=== PATIENT | female | born 1940 | race Caucasian/White ===

== ENCOUNTER 2023-11-21 09:12 | Day surgery (SDC) | payer MEDICARE, SELFPAY ==
[2023-11-16 09:00] VITALS: BMI 24.3
--- NOTE | 2023-11-17 14:27 | HO.ANESPROP2 ---
HPI - Anesthesia Eval Consult details Narrative: 83yo F for Right Cataract Extraction IOL Insertion No previous cataract PMFSH Past Medical History Medical History Hx of systemic lupus erythematosus (SLE) Hyperlipidemia HTN (hypertension) Osteopenia Asthma Breast cancer CKD (chronic kidney disease) Surgical History Surgical History Hx of partial mastectomy Hx of bilateral mastectomy H/O colonoscopy History of lumpectomy of right breast Social History Social History Patient Tobacco Use Status: Never used Tobacco Use of substances other than those prescribed or required for medical reasons: No Are you DNR?: No Advance Directives: No Advance Directives Information Provided: No Advance Directives on File: No Patient : No : No Meds Allergies Allergy/AdvReac Type Severity Reaction Status Date / Time dog dander [dogs] Allergy Wheezing Verified 11/21/23 11:22 Home Medications ?Medication ?Instructions ?Recorded ?Confirmed ?Last Taken ?Type lisinopril 20 1 tab PO DAILY 11/16/23 11/16/23 Unknown History mg-hydrochlorothiazide 12.5 mg tablet lovastatin 20 mg tablet 20 mg PO DAILY 11/16/23 11/16/23 Unknown History multivitamin 1 tab PO DAILY 11/16/23 11/16/23 Unknown History Exam Height,Weight and Vital Signs: Height 5 ft 3 in Weight 62.142 kg Assessment and Plan Assessment Anesthesia Assessment: Chart Reviewed
[2023-11-21] MEDS: Lactated Ringers 500 ML 50 ML IV (10:57)
[2023-11-21] MEDS: Tetracaine HCl/PF 0.5% Oph Sol 4 ML DROPS 1 DROP EYE-RIGHT (10:57)
[2023-11-21] MEDS: Cyclopentolate 1 % Ophth Sol 2 ML DRPBTL 1 DROP EYE-RIGHT ×3 (10:58→11:12)
[2023-11-21] MEDS: Ketorolac Tromethamine 0.5% Op 10 ML DROPS 1 DROP EYE-RIGHT ×3 (10:58→11:12)
[2023-11-21] MEDS: Tropicamide 1 % Ophth Sol 3 ML BTL 1 DROP EYE-RIGHT ×3 (10:58→11:12)
[2023-11-21] MEDS: Phenylephrine HCL 2.5% Oph SoL 2 ML BOTTLE 1 DROP EYE-RIGHT ×3 (10:58→11:11)
[2023-11-21 11:21] VITALS: BP 143/93; PULSE 87; RESP 18; TEMP 37.2; O2SAT 99
--- NOTE | 2023-11-21 11:58 | HO.ANESPROP2 ---
[facility] Past Medical History Medical History Hx of systemic lupus erythematosus (SLE) Hyperlipidemia HTN (hypertension) Osteopenia Asthma Breast cancer CKD (chronic kidney disease) Functional capacity: independent ambulation Patient : No Family History Family history of problems with anesthesia: No Surgical History Surgical History Hx of partial mastectomy Hx of bilateral mastectomy H/O colonoscopy History of lumpectomy of right breast History of Problems with Anesthesia: No Social History Social History Patient Tobacco Use Status: Never used Tobacco Use of substances other than those prescribed or required for medical reasons: No Are you DNR?: No Advance Directives: No Advance Directives Information Provided: Yes Advance Directives on File: No Patient : No : No Meds Allergies Allergy/AdvReac Type Severity Reaction Status Date / Time dog dander [dogs] Allergy Wheezing Verified 11/21/23 11:22 Active Medications: Current Medications Albuterol Sulfate (Albuterol Sulfate (0.083%) 2.5 Mg/3 Ml Vial.Neb) 2.5 mg INHALE ONCE PRN PRN Reason: Shortness of Breath/Wheezing Lactated Ringer's (Lr) 500 mls @ 50 mls/hr IV .Q10H AVERY Stop: 11/21/23 20:44 Last Admin: 11/21/23 10:57 Dose: 50 mls/hr Povidone Iodine (Povidone Iodine 5 % Oph Soln 30 Ml Bottle) 1 appl EYE-RIGHT PREOP PRN PRN Reason: Pre-Op Surgical Implant Prophy Home Medications ?Medication ?Instructions ?Recorded ?Confirmed ?Last Taken ?Type lisinopril 20 1 tab PO DAILY 11/16/23 11/16/23 Unknown History mg-hydrochlorothiazide 12.5 mg tablet lovastatin 20 mg tablet 20 mg PO DAILY 11/16/23 11/16/23 Unknown History multivitamin 1 tab PO DAILY 11/16/23 11/16/23 Unknown History Exam Height,Weight and Vital Signs: Height 5 ft 3 in Weight 62.142 kg Last Vital Signs Temp 98.9 F 11/21/23 11:21 Pulse 87 11/21/23 11:21 Resp 18 11/21/23 11:21 BP 143/93 H 11/21/23 11:21 Pulse Ox 99 11/21/23 11:21 O2 Del Method Room Air 11/21/23 11:21 Airway Mallampati Class: II TM Dist: >3cm Neck ROM: Full Heart: RRR Lungs: CTA Assessment and Plan Assessment Anesthesia Assessment: Anesthesia Plan Discussed and Chart Reviewed Final Anesthetic Review Family History of Problems with Anesthesia: No History of Problems with Anesthesia: No NPO: Yes ASA Class: II Final Preanesthetic Review: Meds/Allgs Chart Reviewed, Consent Obtained/Reviewed and Anes Risks/Benef Reviewed Patient Risk: Intermediate Procedure Risk: Low Anesthetic Plan Anesthetic Plan: MAC: Disposition: Standard PACU
--- NOTE | 2023-11-21 12:45 | MHC.SHP ---
Pre-Procedural Eval Section A - 24 Hr Update-Section A only Date of Service: 11/21/23 The patient is an INPATIENT: No Changes since office visit: No Cold of Flu in the past 2 weeks, No New Medical Problems, No Changes in Medication and No Patient answered all questions The patient has been examined within 24 hours of the surgical procedure. The History & Physical has been completed within 30 days and I have reviewed it.: Yes Section B - Complete if H&P > 30 days Chief Complaint: Age-related nuclear cataract, right eye Allergies: Allergies Allergy/AdvReac Type Severity Reaction Status Date / Time dog dander [dogs] Allergy Wheezing Verified 11/21/23 11:22 Plan Diagnosis/Plan: Unchanged I have reviewed the history and physical and performed a pertinent physical examination on my patient. No changes have occurred unless specified. Time Spent With Patient Time: Total time managing care of this patient today ____ minutes.
--- NOTE | 2023-11-21 12:46 | P.PCNO_ITS ---
Ophthalmology Procedure Procedure Date of Service: 11/21/23 Ophthalmology Viscoelastic: Healon Duet Dual Pack Pro Ophthalmology Lenses: IOL Acrysof MP - MA60AC (22) Procedure Notes: PREOPERATIVE DIAGNOSIS: Decreased visual acuity right eye secondary to cataract POSTOPERATIVE DIAGNOSIS: Same PROCEDURE: Right cataract extraction with intraocular lens insertion SURGEON: Brooks Frey M.D. ANESTHESIA: Topical/MAC ESTIMATED BLOOD LOSS: None COMPLICATIONS: None After obtaining informed consent, the patient was brought to the operating room suite and placed in the supine position. After adequate sedation per anesthesia, topical drops of Tetracaine were given to the right eye. The eye was then prepped and draped in the usual sterile fashion. The operating room microscope was then positioned over the operative eye and a lid speculum placed. A paracentesis was created. Viscoelastic was then instilled into the anterior chamber. A three plane incision was then created temporally, utilizing a 2.85 mm keratome. Capsulotomy forceps were then utilized to create a circular tear capsulotomy. Hydrodissection and hydrodelineation were carried out until adequate mobilization of the nucleus occurred. Phacoemulsification was then utilized to remove the dense central nucl eus followed by removal of the cortical material utilizing the automated aspiration irrigation unit. Viscoelastic was instilled into the posterior capsular bag followed by placement of a posterior chamber intraocular lens without difficulty. The residual Viscoelastic was then removed utilizing the automated IA machine. The wound was checked and found to be watertight. The patient tolerated the procedure well and the lid speculum was removed. Intracameral injection of Vigamox 0.1 mL followed by a subtenon injection of Kenalog-40 0.2 mL were administered. The patient will be seen in the a.m.
[2023-11-21 13:16] VITALS: BP 154/70; PULSE 77; RESP 15; TEMP 36.1; O2SAT 98
--- NOTE | 2023-11-21 13:18 | HO.ANESPROP2 ---
[facility] Past Medical History Medical History Hx of systemic lupus erythematosus (SLE) Hyperlipidemia HTN (hypertension) Osteopenia Asthma Breast cancer CKD (chronic kidney disease) Functional capacity: independent ambulation Patient : No Family History Family history of problems with anesthesia: No Surgical History Surgical History Hx of partial mastectomy Hx of bilateral mastectomy H/O colonoscopy History of lumpectomy of right breast History of Problems with Anesthesia: No Social History Social History Patient Tobacco Use Status: Never used Tobacco Use of substances other than those prescribed or required for medical reasons: No Are you DNR?: No Advance Directives: No Advance Directives Information Provided: Yes Advance Directives on File: No Patient : No : No Meds Allergies Allergy/AdvReac Type Severity Reaction Status Date / Time dog dander [dogs] Allergy Wheezing Verified 11/21/23 11:22 Active Medications: Current Medications Albuterol Sulfate (Albuterol Sulfate (0.083%) 2.5 Mg/3 Ml Vial.Neb) 2.5 mg INHALE ONCE PRN PRN Reason: Shortness of Breath/Wheezing Lactated Ringer's (Lr) 500 mls @ 50 mls/hr IV .Q10H AVERY Stop: 11/21/23 20:44 Last Admin: 11/21/23 10:57 Dose: 50 mls/hr Naloxone HCl (Naloxone Hcl 0.4 Mg/Ml Vial) 0.04 mg IVPUSH Q5M PRN PRN Reason: Excessive sedation or RR < 8 Povidone Iodine (Povidone Iodine 5 % Ophth Soln 30 Ml Bottle) 1 appl EYE-RIGHT PREOP PRN PRN Reason: Pre-Op Surgical Implant Prophy Home Medications ?Medication ?Instructions ?Recorded ?Confirmed ?Last Taken ?Type lisinopril 20 1 tab PO DAILY 11/16/23 11/16/23 Unknown History mg-hydrochlorothiazide 12.5 mg tablet lovastatin 20 mg tablet 20 mg PO DAILY 11/16/23 11/16/23 Unknown History multivitamin 1 tab PO DAILY 11/16/23 11/16/23 Unknown History Exam Height,Weight and Vital Signs: Height 5 ft 3 in Weight 62.142 kg Last Vital Signs Temp 98.9 F 11/21/23 11:21 Pulse 87 11/21/23 11:21 Resp 18 11/21/23 11:21 BP 143/93 H 11/21/23 11:21 Pulse Ox 99 11/21/23 11:21 O2 Del Method Room Air 11/21/23 11:21 Airway Mallampati Class: III TM Dist: >3cm Neck ROM: Full Heart: RRR Lungs: CTA Assessment and Plan Assessment Anesthesia Assessment: Anesthesia Plan Discussed and Chart Reviewed Final Anesthetic Review Family History of Problems with Anesthesia: No History of Problems with Anesthesia: No NPO: Yes ASA Class: III Final Preanesthetic Review: Meds/Allgs Chart Reviewed, Consent Obtained/Reviewed and Anes Risks/Benef Reviewed Patient Risk: Intermediate Procedure Risk: Low Anesthetic Plan Anesthetic Plan: MAC: Disposition: Standard PACU
[2023-11-21 13:31] VITALS: BP 137/77; PULSE 79; RESP 16; TEMP 36.1; O2SAT 98
--- NOTE | 2023-11-21 14:10 | HO.POSTANES ---
Post Anesthesia Evaluation Post Anesthesia Evaluation Date of Service: 11/21/23 Vital Signs: Vital Signs Temp Pulse Resp BP Pulse Ox O2 Del Method 11/21/23 13:31 97 F 79 16 137/77 98 Room Air 11/21/23 13:16 97 F 77 15 154/70 H 98 Room Air 11/21/23 11:21 98.9 F 87 18 143/93 H 99 Room Air Anesthesia: Monitored Mental Status: Awake Pain Control: Satisfactory Nausea/Vomiting: None Hydration: Adequate Anesthesia-Related Issues: No Anes. Related Issues
== END 2023-11-21 13:34 | disposition home or self-care (01) ==
PROVIDERS: PCP Internal Medicine; Visit Provider Ophthalmology
PROC: (CPT 66985; principal; 2023-11-21 11:10)
DX: H25.11 Age-related nuclear cataract, right eye (principal); H52.4 Presbyopia; H35.363 Drusen (degenerative) of macula, bilateral; H18.413 Arcus senilis, bilateral; I12.9 Hypertensive chronic kidney disease with stage 1 through stage 4 chronic kidney disease, or unspecified chronic kidney disease; N18.30 Chronic kidney disease, stage 3 unspecified; M32.9 Systemic lupus erythematosus, unspecified; J45.909 Unspecified asthma, uncomplicated; Z85.3 Personal history of malignant neoplasm of breast; M85.80 Other specified disorders of bone density and structure, unspecified site; E78.5 Hyperlipidemia, unspecified; Z98.890 Other specified postprocedural states; Z79.899 Other long term (current) drug therapy
CPT/HCPCS: 66984; J2250; J3301; V2630

== ENCOUNTER 2023-12-05 08:56 | Day surgery (SDC) | payer MEDICARE, SELFPAY ==
[2023-11-16 09:06] VITALS: BMI 24.3
[2023-12-05] MEDS: Tetracaine HCl/PF 0.5% Oph Sol 4 ML DROPS 1 DROP EYE-LEFT (10:16)
[2023-12-05] MEDS: Lactated Ringers 500 ML 50 ML IV (10:16)
[2023-12-05] MEDS: Cyclopentolate 1 % Ophth Sol 2 ML DRPBTL 1 DROP EYE-LEFT ×3 (10:16→10:30)
[2023-12-05] MEDS: Tropicamide 1 % Ophth Sol 3 ML BTL 1 DROP EYE-LEFT ×3 (10:17→10:30)
[2023-12-05] MEDS: Phenylephrine HCL 2.5% Oph SoL 2 ML BOTTLE 1 DROP EYE-LEFT ×3 (10:17→10:31)
[2023-12-05] MEDS: Ketorolac Tromethamine 0.5% Op 10 ML DROPS 1 DROP EYE-LEFT ×3 (10:17→10:30)
--- NOTE | 2023-12-05 10:35 | P.CONAN_ITS ---
Documented by User: Aranza Orr NP 12/01/23 14:40 HPI - Anesthesia Eval Consult details Narrative: 83yo F for Left Cataract Extraction IOL Insertion Right eye 11/21/23: [facility] 2 [facility] Past Medical History Medical History Hx of systemic lupus erythematosus (SLE) Hyperlipidemia HTN (hypertension) Osteopenia Asthma Breast cancer CKD (chronic kidney disease) Family History Family history of problems with anesthesia: No Surgical History Surgical History Hx of partial mastectomy Hx of bilateral mastectomy H/O colonoscopy History of lumpectomy of right breast History of Problems with Anesthesia: No Social History Social History Patient Tobacco Use Status: Never used Tobacco Use of substances other than those prescribed or required for medical reasons: No Are you DNR?: No Advance Directives: No Advance Directives Information Provided: Yes Advance Directives on File: No Patient : No : No Meds Allergies Allergy/AdvReac Type Severity Reaction Status Date / Time dog dander [dogs] Allergy Wheezing Verified 11/21/23 11:22 Home Medications ?Medication ?Instructions ?Recorded ?Confirmed ?Last Taken ?Type lisinopril 20 1 tab PO DAILY 11/16/23 11/16/23 Unknown History mg-hydrochlorothiazide 12.5 mg tablet lovastatin 20 mg tablet 20 mg PO DAILY 11/16/23 11/16/23 Unknown History multivitamin 1 tab PO DAILY 11/16/23 11/16/23 Unknown History Exam Height,Weight and Vital Signs: Height 5 ft 3 in Weight 62.142 kg Assessment and Plan Assessment Anesthesia Assessment: Chart Reviewed Final Anesthetic Review Family History of Problems with Anesthesia: No History of Problems with Anesthesia: No Documented by User: Amaris Paniagua DO 12/05/23 10:39 PMFSH Past Medical History Medical History Hx of systemic lupus erythematosus (SLE) Hyperlipidemia HTN (hypertension) Osteopenia Asthma Breast cancer CKD (chronic kidney disease) Family History Family history of problems with anesthesia: No Surgical History Surgical History Hx of partial mastectomy Hx of bilateral mastectomy H/O colonoscopy History of lumpectomy of right breast History of Problems with Anesthesia: No Social History Social History Patient Tobacco Use Status: Never used Tobacco Use of substances other than those prescribed or required for medical reasons: No Are you DNR?: No Advance Directives: No Advance Directives Information Provided: Yes Advance Directives on File: No Patient : No : No Meds Allergies Allergy/AdvReac Type Severity Reaction Status Date / Time dog dander [dogs] Allergy Wheezing Verified 11/21/23 11:22 Home Medications ?Medication ?Instructions ?Recorded ?Confirmed ?Last Taken ?Type lisinopril 20 1 tab PO DAILY 11/16/23 11/16/23 Unknown History mg-hydrochlorothiazide 12.5 mg tablet lovastatin 20 mg tablet 20 mg PO DAILY 11/16/23 11/16/23 Unknown History multivitamin 1 tab PO DAILY 11/16/23 11/16/23 Unknown History Exam Exam Date and Time: 12/05/23 1030 Airway Mallampati Class: II TM Dist: >3cm Neck ROM: Full Loose/Missing/Broken Teeth: No (patient denies any loose or broken teeth) Heart: S1S2 Lungs: CTAB Assessment and Plan Assessment Anesthesia Assessment: Anesthesia Plan Discussed and Chart Reviewed Final Anesthetic Review Family History of Problems with Anesthesia: No History of Problems with Anesthesia: No NPO: Yes ASA Class: II Final Preanesthetic Review: No Changes in Pt Med Stat, Meds/Allgs Chart Reviewed, Consent Obtained/Reviewed and Anes Risks/Benef Reviewed Patient Risk: Low Procedure Risk: Low Anesthetic Plan Anesthetic Plan: MAC: and Agree w/ Assess. and Plan Disposition: Standard PACU
[2023-12-05 10:38] VITALS: BP 156/72; PULSE 80; RESP 18; TEMP 36.8; O2SAT 99
--- NOTE | 2023-12-05 11:12 | MHC.SHP ---
Pre-Procedural Eval Section A - 24 Hr Update-Section A only Date of Service: 12/05/23 The patient is an INPATIENT: No Changes since office visit: No Cold of Flu in the past 2 weeks, No New Medical Problems, No Changes in Medication and No Patient answered all questions The patient has been examined within 24 hours of the surgical procedure. The History & Physical has been completed within 30 days and I have reviewed it.: Yes Section B - Complete if H&P > 30 days Chief Complaint: Age-related nuclear cataract, left eye Allergies: Allergies Allergy/AdvReac Type Severity Reaction Status Date / Time dog dander [dogs] Allergy Wheezing Verified 12/05/23 10:39 Plan Diagnosis/Plan: Unchanged I have reviewed the history and physical and performed a pertinent physical examination on my patient. No changes have occurred unless specified. Time Spent With Patient Time: Total time managing care of this patient today ____ minutes.
--- NOTE | 2023-12-05 11:13 | HO.PNOPHT ---
Ophthalmology Procedure Procedure Date of Service: 12/05/23 Ophthalmology Viscoelastic: Healon Duet Dual Pack Pro Ophthalmology Lenses: IOL Acrysof MP - MA60AC (21.5) Procedure Notes: PREOPERATIVE DIAGNOSIS: Decreased visual acuity left eye secondary to cataract POSTOPERATIVE DIAGNOSIS: Same PROCEDURE: Left cataract extraction with intraocular lens insertion SURGEON: Brooks Frey M.D. ANESTHESIA: Topical/MAC ESTIMATED BLOOD LOSS: None COMPLICATIONS: None After obtaining informed consent, the patient was brought to the operation room suite and placed in the supine position. After adequate sedation per anesthesia, topical drops of Tetracaine were given to the left eye. The eye was then prepped and draped in the usual sterile fashion. The operating room microscope was then positioned over the operative eye and a lid speculum placed. A paracentesis was created. Viscoelastic was then instilled into the anterior chamber. A three plane incision was then created temporally, utilizing a 2.85 mm keratome. Capsulotomy forceps were then utilized to create a circular tear capsulotomy. Hydrodissection and hydrodelineation were carried out until adequate mobilization of the nucleus occurred. Phacoemulsification was then utilized to remove the dense central nucleus followed by removal of the cortical material utilizing the automated aspiration irrigation unit. Viscoat elastic was instilled into the posterior capsular bag followed by placement of a posterior chamber intraocular lens without difficulty. The residual Viscoat elastic was then removed utilizing the automated IA machine. The wound was check and found to be watertight. The patient tolerated the procedure well and the lid speculum was removed. Intracameral injection of Vigamox 0.1 mL followed by a subtenon injection of Kenalog-40 0.2 mL were administered. The patient will be seen in the a.m.
[2023-12-05 12:16] VITALS: BP 158/73; PULSE 73; RESP 18; TEMP 36.2; O2SAT 98
== END 2023-12-05 12:23 | disposition home or self-care (01) ==
PROVIDERS: PCP Internal Medicine; Visit Provider Ophthalmology
PROC: (CPT 66985; principal; 2023-12-05 11:30)
DX: H25.12 Age-related nuclear cataract, left eye (principal); H52.4 Presbyopia; H35.363 Drusen (degenerative) of macula, bilateral; H18.413 Arcus senilis, bilateral; M32.10 Systemic lupus erythematosus, organ or system involvement unspecified; E78.5 Hyperlipidemia, unspecified; I12.9 Hypertensive chronic kidney disease with stage 1 through stage 4 chronic kidney disease, or unspecified chronic kidney disease; N18.30 Chronic kidney disease, stage 3 unspecified; J45.909 Unspecified asthma, uncomplicated; Z85.3 Personal history of malignant neoplasm of breast; Z79.899 Other long term (current) drug therapy; Z98.890 Other specified postprocedural states
CPT/HCPCS: 66984; J2250; J3301; V2630